=== PATIENT | female | born 1960 | race Caucasian/White ===

== ENCOUNTER 2017-10-26 19:27 | Emergency (ER) | payer MEDICARE, MEDICAID ==
[~2017-10-26] VITALS: Ht 162.6 cm; Wt 112.0 kg
[~2017-10-26 19:27] MED LIST: LACT10SO PO; LEVO88TA7 PO; METF500T PO; PANT-47 PO; TRAZ-146 PO
[2017-10-26 19:32] VITALS: BP 114/76
[2017-10-26] MEDS ORDERED: albuterol 2.5 MG/3 ML nebule NEB ONE (19:40)
[2017-10-26] MEDS ORDERED: GUAI10SY2 PO (19:57)
[2017-10-26] MEDS ORDERED: PRED20TA PO (19:57)
[2017-10-26] MEDS ORDERED: ALBU8HFA PO (19:57)
[2017-10-26] MEDS ORDERED: AZI25OT PO (19:57)
[2017-10-26] MEDS ORDERED: predniSONE 20 mg tablet PO ONE (20:00)
== END 2017-10-26 20:12 | disposition home or self-care (01) ==
LOC: ER 19:28
DX: J20.9 Acute bronchitis, unspecified (principal); E11.9 Type 2 diabetes mellitus without complications; Z88.5 Allergy status to narcotic agent; Z79.84 Long term (current) use of oral hypoglycemic drugs; Z79.899 Other long term (current) drug therapy
CPT/HCPCS: 71045; 94640; 94760; 99283; J7512